=== PATIENT | male | born 1990 | race Caucasian/White ===

== ENCOUNTER 2017-03-31 20:10 | Emergency (ER) | payer OTHER ==
[2017-03-31 20:20] VITALS: BP 129/75; PULSE 63; TEMP 98.8; BMI 33.0
[2017-03-31] MEDS ORDERED: oxyCODONE HCL 5 MG TABLET PO ONE (21:09)
--- NOTE | 2017-03-31 21:09 | PDOC ---
History of Present Illness - General Chief Complaint: Chronic pain Stated Complaint: BACK PAIN Time Seen by Provider: 03/31/17 20:37 - History of Present Illness Initial Comments: 03/31/17 21:01 CHIEF COMPLAINT: back pain HISTORY OF PRESENT ILLNESS: 27 yo M with hx of back pain [facility]. Patient states his girlfriend accidentally washed his pills in his pants and "they all got soaked." He states that he called the pharmacy and the pharmacy told him to go to the emergency room. No recent travel or sick contacts. PAST MEDICAL HISTORY: Denies past medical history FAMILY HISTORY: Denies SOCIAL HISTORY: Denies tobacco, alcohol, illicit drug use. SURGICAL HISTORY: Denies ALLERGIES: No known drug allergies REVIEW OF SYSTEMS General/Constitutional: Denies weakness. Cardiovascular: Denies chest pain or shortness of breath. Respiratory: Denies cough, wheezing, or hemoptysis. Gastrointestinal: Denies nausea, vomiting, diarrhea. Genitourinary: Denies loss of bowel or bladder function. Musculoskeletal: Lower back pain. Skin and breasts: Denies rash or easy bruising. Neurologic: Denies headache, vertigo, loss of consciousness, or loss of sensation. PHYSICAL EXAM General Appearance: Well-appearing, appropriately dressed. No apparent distress. HEENT: EOMI, PERRLA. No photophobia, scleral icterus. Respiratory/Chest: Lungs CTAB. Cardiovascular: RRR. S1, S2. Musculoskeletal/Extremities: No midline tenderness to thoracic or lumbar spine. Patient ambulatory and does not appear to be in pain as he is talking on the cell phone and pacing around the exam room. FROM of all extremities, normal capillary refill. No tenderness to extremities, pedal edema, swelling, erythema or deformity. Integumentary: Appropriate color, dry, warm. No cyanosis, erythema, jaundice or rash Neurologic: sand drier II-XII intact. Fully oriented, alert. Appropriate mood/affect. Motor strength 5/5. No appreciable EOM palsy, facial droop or sensory deficit. 03/31/17 22:54 Past History - Past Medical History Allergies/Adverse Reactions: Allergies Allergy/AdvReac Type Severity Reaction Status Date / Time No Known Allergies Allergy Verified 03/31/17 20:17 Home Medications: Ambulatory Orders Oxycodone HCl 10 mg PO QID PRN 03/31/17 Anemia: No - Immunization History Immunization Up to Date: No - Suicide/Smoking/Psychosocial Hx Smoking Status: Yes Smoking History: Current every day smoker Have you smoked in the past 12 months: Yes Number of Cigarettes Smoked Daily: 20 Information on smoking cessation initiated: No Hx Alcohol Use: No Drug/Substance Use Hx: Yes (marijuana) *Physical Exam - Vital Signs Last Vital Signs Temp Pulse Resp BP Pulse Ox 98.8 F 63 18 129/75 100 03/31/17 20:12 03/31/17 20:12 03/31/17 20:12 03/31/17 20:12 03/31/17 20:12 Medical Decision Making - Medical Decision Making 03/31/17 22:56 27 yo M with hx of back pain [facility]. [facility] referenced. Patient was prescribed 120 tab oxycodone two weeks ago. Rx Written Rx Dispensed Drug Quantity Days Supply Prescriber Name 03/10/2017 03/10/2017 oxycodone hcl 10 mg tablet 120 30 Elzholz, Juan 02/06/2017 02/06/2017 oxycodone hcl 10 mg tablet 120 30 Elzholz, Juan 01/06/2017 01/06/2017 oxycodone hcl 10 mg tablet 120 30 Elzholz, Juan 12/14/2016 12/14/2016 oxycodone hcl 10 mg tablet 90 30 Elzholz, Juan Patient Name: Fabiola Lei Date: 1990 Address: [address] [place] [address] Sex: Male Rx Written Rx Dispensed Drug Quantity Days Supply Prescriber Name 09/04/2016 09/29/2016 buprenorphine-naloxone 8-2 mg sl tablet 90 30 Vando, Chavo 07/10/2016 08/07/2016 buprenorphine-naloxone 8-2 mg sl tablet 90 30 Vando, Chavo 07/10/2016 07/10/2016 buprenorphine-naloxone 8-2 mg sl tablet 90 30 Vando, Chavo 06/12/2016 06/15/2016 buprenorphine 8 mg tablet sl 90 30 VandChavo jennings Will give patient one tablet of oxycodone here in ED, advised patient to f/u with ortho tomorrow to discuss medication refill. *DC/Admit/Observation/Transfer Diagnosis at time of Disposition: Back pain - Discharge Dispostion Disposition: HOME Condition at time of disposition: Stable Admit: No - Referrals Referrals: Champ Lacy MD [Primary Care Provider] - - Patient Instructions Printed Discharge Instructions: DI for Low Back Pain Additional Instructions: As discussed, please follow up with your orthopedic doctor tomorrow for continued pain management. If you develop sudden loss of sensation to your extremities, loss of bowel or bladder function, or any new or worsening symptoms , please return to the ER. - Post Discharge Activity
[2017-03-31] MEDS ORDERED: oxyCODONE HCL 5 MG TABLET ONE (21:13)
== END 2017-03-31 21:19 | disposition home or self-care (01) ==
LOC: JERFT 20:10
DX: M54.5 Low back pain (principal); F17.210 Nicotine dependence, cigarettes, uncomplicated
CPT/HCPCS: 99281-25

== ENCOUNTER 2017-10-31 20:42 | Emergency (ER) | payer OTHER ==
[2017-10-31 20:52] VITALS: BP 126/58; PULSE 59; TEMP 98.5; BMI 30.7
--- NOTE | 2017-10-31 21:11 | PDOC ---
History of Present Illness - General Chief Complaint: Pain Stated Complaint: SPIDER BITE Time Seen by Provider: 10/31/17 21:03 History Source: Patient Exam Limitations: No Limitations - History of Present Illness Initial Comments: 10/31/17 21:32 Pt. is a 27 y/o M who presents to the ED with swelling to his R forearm for 4 days. Pt states that it is warm and tender to the touch. He thinks he got bit by a spider. Denies fevers, chills, joint pain, n/v/d. Past History - Travel Traveled outside of the country in the last 30 days: No Close contact w/someone who was outside of country & ill: No - Past Medical History Allergies/Adverse Reactions: Allergies Allergy/AdvReac Type Severity Reaction Status Date / Time hydrocodone Allergy Severe Rash Verified 11/25/17 17:10 Home Medications: Ambulatory Orders Cephalexin Monohydrate [Keflex -] 500 mg PO Q6H #28 capsule 11/20/17 Sulfamethoxazole/Trimethoprim [Bactrim Ds -] 1 tab PO BID #14 tablet 11/20/17 Anemia: No COPD: No Other medical history: Pt denies - Immunization History Immunization Up to Date: No - Suicide/Smoking/Psychosocial Hx Smoking Status: Yes Smoking History: Never smoked Have you smoked in the past 12 months: Yes Number of Cigarettes Smoked Daily: 20 Information on smoking cessation initiated: No Hx Alcohol Use: No Drug/Substance Use Hx: No Substance Use Type: None Review of Systems - Review of Systems Able to Perform ROS?: Yes Comments:: 10/31/17 21:50 CONSTITUTIONAL: Absent: fever, chills, diaphoresis, generalized weakness, malaise, loss of appetite MUSCULOSKELETAL: Absent: myalgia, arthralgia, joint swelling SKIN: Present: redness to R forearm. Absent: rash, itching, pallor NEUROLOGIC: Absent: headache, focal weakness or paresthesias, dizziness, unsteady gait, seizure, mental status changes, bladder or bowel incontinence Is the patient limited [place] Citizen proficient: No *Physical Exam - Vital Signs Last Vital Signs Temp Pulse Resp BP Pulse Ox 98.5 F 59 L 18 126/58 99 10/31/17 20:50 10/31/17 20:50 10/31/17 20:50 10/31/17 20:50 10/31/17 20:50 - Physical Exam Comments: 10/31/17 21:31 GENERAL: Well developed, well nourished. Awake and alert. No acute distress. NECK: Supple. Full ROM. No lymphadenopathy. MUSCULOSKELETAL Normal range of motion at all joints. No bony deformities or tenderness. No CVA tenderness. EXTREMITIES: 4cm round area of warmth and erythem to R ventral forearm. No evidence of pus. No cyanosis. No clubbing. No edema. No calf tenderness. SKIN: Warm and dry. Normal capillary refill. No rashes. No jaundice. NEUROLOGICAL: Alert, awake, appropriate. Cranial nerves 2-12 intact. No deficits to light touch and temperature in face, upper extremities and lower extremities. No motor deficits in the in face, upper extremities and lower extremities. Normoreflexic in the upper and lower extremities. Normal speech. Toes are down- going bilaterally. Gait is normal without ataxia. PSYCHIATRIC: Cooperative. Good eye contact. Appropriate mood and affect. Medical Decision Making - Medical Decision Making 10/31/17 21:39 Pt. is a 27 y/o M who presents to the ED with cellulitis to the R forearm for four days. No active drainage. Will treat with bactrim and keflex. Area marked. Return precautions given. Pt. understands all dc instructions and all questions were answered. *DC/Admit/Observation/Transfer Diagnosis at time of Disposition: Cellulitis - Discharge Dispostion Disposition: HOME Condition at time of disposition: Stable Decision to Admit order: No - Referrals Referrals: Mukul Flores MD [Staff Physician] - - Patient Instructions Printed Discharge Instructions: DI for Cellulitis -- Adult Additional Instructions: You have cellulitis. This is a skin infection. Please take the Bactrim and Keflex twice a day for one week. Please take all the antibiotics even if you feel better. You may use warm water soaks to the area. Please do this approximately 4-5 times a day. Please avoid shaving the skin around the area of redness. You may take Tylenol or Motrin as needed for pain. Please follow up with your primary care doctor in 1 week. Return to the emergency department if you have worsening redness, fevers, increasing pain, or have any changes in your symptoms. - Post Discharge Activity
== END 2017-10-31 21:45 | disposition home or self-care (01) ==
LOC: JERFT 20:42
DX: L03.113 Cellulitis of right upper limb (principal); F17.210 Nicotine dependence, cigarettes, uncomplicated
CPT/HCPCS: 99281-25

== ENCOUNTER 2017-11-20 14:02 | Emergency (ER) | payer OTHER ==
[2017-11-20 14:15] VITALS: BP 134/71; PULSE 72; TEMP 98.5; BMI 29.5
--- NOTE | 2017-11-20 14:35 | PDOC ---
History of Present Illness - General Chief Complaint: Wound Stated Complaint: BITE Time Seen by Provider: 11/20/17 14:21 History Source: Patient, Old Records Exam Limitations: No Limitations - History of Present Illness Initial Comments: 11/20/17 14:59 27-year-old male with history of cellulitis presents with right elbow pain and redness for the past 3 days. Patient states he had similar symptoms 3 weeks ago in the right mid humeral area which was treated with Keflex and Bactrim. Patient denies any trauma and states the reddened area started after an insect bite. Patient denies any fevers, chills. Past History - Past Medical History Allergies/Adverse Reactions: Allergies Allergy/AdvReac Type Severity Reaction Status Date / Time hydrocodone Allergy Severe Rash Verified 11/20/17 14:13 Home Medications: Ambulatory Orders Cephalexin Monohydrate [Keflex -] 500 mg PO Q6H #28 capsule 11/20/17 Sulfamethoxazole/Trimethoprim [Bactrim Ds -] 1 tab PO BID #14 tablet 11/20/17 Anemia: No COPD: No - Immunization History Immunization Up to Date: No - Suicide/Smoking/Psychosocial Hx Smoking Status: Yes Smoking History: Current every day smoker Have you smoked in the past 12 months: Yes Number of Cigarettes Smoked Daily: 20 Information on smoking cessation initiated: No Hx Alcohol Use: No Drug/Substance Use Hx: No Substance Use Type: None Review of Systems - Review of Systems Able to Perform ROS?: Yes Is the patient limited [place] proficient: No Constitutional: No: Symptoms Reported HEENTM: No: Symptoms Reported Respiratory: No: Symptoms reported Cardiac (ROS): No: Symptoms Reported ABD/GI: No: Symptoms Reported : No: Symptoms Reported Musculoskeletal: No: Symptoms Reported Integumentary: Yes: See HPI Neurological: No: Symptoms reported *Physical Exam - Vital Signs Last Vital Signs Temp Pulse Resp BP Pulse Ox 98.5 F 72 18 134/71 99 11/20/17 14:13 11/20/17 14:13 11/20/17 14:13 11/20/17 14:13 11/20/17 14:13 - Physical Exam General Appearance: Yes: Appropriately Dressed. No: Apparent Distress HEENT: positive: Normal ENT Inspection Neck: positive: Trachea midline, Supple Respiratory/Chest: positive: Lungs Clear, Normal Breath Sounds. negative: Respiratory Distress, Accessory Muscle Use Cardiovascular: positive: Regular Rhythm, Regular Rate. negative: Murmur Gastrointestinal/Abdominal: positive: Normal Bowel Sounds, Soft. negative: Tender Musculoskeletal: positive: Normal Inspection. negative: CVA Tenderness Extremity: positive: Normal Capillary Refill, Normal Range of Motion, Erythema ( medial elbow) Integumentary: positive: Normal Color, Dry, Warm Neurologic: positive: Alert, Normal Response Medical Decision Making - Medical Decision Making 11/20/17 14:35 A/P: 27-year-old male with history of right upper extremity cellulitis presents with right upper extremity cellulitis to the medial aspect of the elbow. Erythema and warmth to touch to the medial aspect of the right elbow. No fluctuance present Subcentimeter fluid-filled vesicle noted to the center of the erythematous area Patient will full range of motion with flexion and extension of right elbow No streaking present Patient is afebrile I will discharge the patient home with a cellulitis to be treated with Keflex and Bactrim. *DC/Admit/Observation/Transfer Diagnosis at time of Disposition: Cellulitis Qualifiers: Site of cellulitis: extremity Site of cellulitis of extremity: upper extremity Laterality: right Qualified Code(s): L03.113 - Cellulitis of right upper limb - Discharge Dispostion Disposition: HOME Condition at time of disposition: Fair Decision to Admit order: No - Prescriptions Prescriptions: Cephalexin Monohydrate [Keflex -] 500 mg PO Q6H #28 capsule Sulfamethoxazole/Trimethoprim [Bactrim Ds -] 1 tab PO BID #14 tablet - Referrals Referrals: Champ Lacy MD [Primary Care Provider] - - Patient Instructions Additional Instructions: Take Keflex 500 mg 4 times a day for the next 7 days Take Bactrim DS one tablet twice a day for the next 7 days Finish all antibiotics even if you feel better. Apply warm compresses to your ear as needed. Return to emergency department for any worsening pain, drainage, difficulty moving elbow, or any other concerns. Thank you very much for choosing us to provide your emergent health care needs. - Post Discharge Activity
== END 2017-11-20 14:50 | disposition home or self-care (01) ==
LOC: JERFT 14:02
DX: S50.361A Insect bite (nonvenomous) of right elbow, initial encounter (principal); L03.113 Cellulitis of right upper limb; W57.XXXA Bitten or stung by nonvenomous insect and other nonvenomous arthropods, initial encounter; Y93.89 Activity, other specified; Y92.89 Other specified places as the place of occurrence of the external cause; Y99.8 Other external cause status
CPT/HCPCS: 99281-25

== ENCOUNTER 2017-11-25 17:02 | Emergency (ER) | payer OTHER ==
[2017-11-25 17:10] VITALS: BP 124/66; PULSE 71; TEMP 98; BMI 29.9
--- NOTE | 2017-11-25 17:10 | PDOC ---
Rapid Medical Evaluation Time Seen by Provider: 11/25/17 17:05 Medical Evaluation: Allergies Allergy/AdvReac Type Severity Reaction Status Date / Time hydrocodone Allergy Severe Rash Verified 11/20/17 14:13 I have performed a brief in-person evaluation of this patient. The patient presents with a chief complaint of: spider bite on right elbow. on Keflex and Bactrim for 7 days; no improvement Pertinent physical exam findings: Erythematous abscess to right elbow with central raised area I have ordered the following: nothing The patient will proceed to the ED for further evaluation. Discharge Disposition - Diagnosis Cellulitis - Referrals - Patient Instructions - Post Discharge Activity
--- NOTE | 2017-11-25 18:15 | PDOC ---
History of Present Illness - General Chief Complaint: Redness To Affected Area Stated Complaint: BITE Time Seen by Provider: 11/25/17 17:05 History Source: Patient Exam Limitations: No Limitations - History of Present Illness Initial Comments: 11/25/17 18:20 Pt. is a 27 yo M who presents to the ED with a draining wound to his R elbow. Pt. was evaluated on 11/20/17 in our ED for cellulitis and pain to the L elbow. He was placed on bactrim and keflex and sent home. He states since then his cellulitis has reduced drastically and he can fully range the elbow. He is concerned because the area of the bite is now draining. Denies fevers, chills, bone pain, n/v/d, weakness and numbness to the extremity. Past History - Travel Traveled outside of the country in the last 30 days: No Close contact w/someone who was outside of country & ill: No - Past Medical History Allergies/Adverse Reactions: Allergies Allergy/AdvReac Type Severity Reaction Status Date / Time hydrocodone Allergy Severe Rash Verified 11/25/17 17:10 Home Medications: Ambulatory Orders Cephalexin Monohydrate [Keflex -] 500 mg PO Q6H #28 capsule 11/20/17 Sulfamethoxazole/Trimethoprim [Bactrim Ds -] 1 tab PO BID #14 tablet 11/20/17 Anemia: No COPD: No - Immunization History Immunization Up to Date: No - Suicide/Smoking/Psychosocial Hx Smoking Status: Yes Smoking History: Never smoked Have you smoked in the past 12 months: No Number of Cigarettes Smoked Daily: 20 Information on smoking cessation initiated: No Hx Alcohol Use: No Drug/Substance Use Hx: No Substance Use Type: None Review of Systems - Review of Systems Able to Perform ROS?: Yes Comments:: 11/25/17 18:15 CONSTITUTIONAL: Absent: fever, chills, diaphoresis, generalized weakness, malaise, loss of appetite MUSCULOSKELETAL: Absent: myalgia, arthralgia, joint swelling SKIN: Present: open draining abscess to the R elbow. Absent: rash, itching, pallor NEUROLOGIC: Absent: headache, focal weakness or paresthesias, dizziness, unsteady gait, seizure, mental status changes, bladder or bowel incontinence PSYCHIATRIC: Absent: anxiety, depression, suicidal or homicidal ideation, hallucinations. Is the patient limited [place] proficient: No *Physical Exam - Vital Signs Last Vital Signs Temp Pulse Resp BP Pulse Ox 98.0 F 71 16 124/66 100 11/25/17 17:06 11/25/17 17:06 11/25/17 17:06 11/25/17 17:06 11/25/17 17:06 - Physical Exam Comments: 11/25/17 18:16 GENERAL: Well developed, well nourished. Awake and alert. No acute distress. HEENT: Normocephalic, atraumatic. PERRLA, EOMI. No conjunctival pallor. Sclera are non- icteric. Moist mucous membranes. Oropharynx is clear. MUSCULOSKELETAL Normal range of motion at all joints. No bony deformities or tenderness. No CVA tenderness. EXTREMITIES: No joint swelling or erythema. Full ROM of the R elbow. No cyanosis. No clubbing. No edema. No calf tenderness. SKIN: Open draining abscess approximately 0.5cm round at the tip of the R elbow.Warm and dry. Normal capillary refill. No rashes. No jaundice. NEUROLOGICAL: Alert, awake, appropriate. Cranial nerves 2-12 intact. No deficits to light touch and temperature in face, upper extremities and lower extremities. No motor deficits in the in face, upper extremities and lower extremities. Normoreflexic in the upper and lower extremities. Normal speech. Toes are down- going bilaterally. Gait is normal without ataxia. Medical Decision Making - Medical Decision Making 11/25/17 18:22 Pt. is a 27 y.o M who presents to the ED with a draining abscess to his R elbow. Abscess drained with manual expression. Wound culture collected. Pt. told to continue abx. Follow up with ID and ortho given if necessary. Strict return precautions given. Pt. understands all dc instructions and all questions were answered. *DC/Admit/Observation/Transfer Diagnosis at time of Disposition: Abscess Cellulitis Qualifiers: Site of cellulitis: extremity Site of cellulitis of extremity: upper extremity Laterality: right Qualified Code(s): L03.113 - Cellulitis of right upper limb - Discharge Dispostion Disposition: HOME Condition at time of disposition: Stable Decision to Admit order: No - Referrals Referrals: Felix Mcdonald MD [Staff Physician] - Simón Bennett MD [Staff Physician] - - Patient Instructions Printed Discharge Instructions: DI for Cellulitis -- Adult Additional Instructions: You have cellulitis. This is a skin infection. Please continue to take the Bactrim and Keflex twice a day for one week. Please take all the antibiotics even if you feel better. You may use warm water soaks to the area. Please do this approximately 4-5 times a day. Please avoid shaving the skin around the area of redness. You may take Tylenol or Motrin as needed for pain. Please follow up with your primary care doctor in 1 week. If your symptoms are not getting better, please follow up with wound care/ Dr. Mcdonald (infectious disease). You were also given ortho follow up. Return to the emergency department if you have worsening redness, fevers, increasing pain, or have any changes in your symptoms. Wound care phone # [phone] - Post Discharge Activity Forms/Work/School Notes: Back to Work
--- NOTE | 2017-11-28 00:48 | PDOC ---
Patient Follow-up (Call Back) - Post ED Follow - Up Chief Complaint: Wound Condition at time of discharge: Stable Disposition at time of original discharge: HOME Reason for Call Back: Abnwl. Microbiology (R elbow wound culture POSITIVE for MRSA.) - Disposition Additional Instructions/Notes: 12:51 PM (11-28-17) Called Patient phone number on file ) and spoke to patient regarding Positive MRSA wound culture advising. Patent Keflex 500mg QID, and Bactrim BID. Advised pt. to come back to ED with worsening wound, systemic symptoms, F/C, N/V. 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
== END 2017-11-25 18:07 | disposition home or self-care (01) ==
LOC: JERFT 17:02
DX: L03.113 Cellulitis of right upper limb (principal); S50.361 Insect bite (nonvenomous) of right elbow; W57.XXXD Bitten or stung by nonvenomous insect and other nonvenomous arthropods, subsequent encounter
CPT/HCPCS: 87070; 87186; 87205; 99281-25

== ENCOUNTER 2023-09-26 16:25 | Emergency (ER) | payer OTHER ==
[2023-09-26 16:34] VITALS: BP 113/72; PULSE 98; RESP 18; TEMP 98.3; BMI 33.5
== END 2023-09-26 17:30 | disposition left against medical advice (07) ==
LOC: JER 16:25
DX: R55 Syncope and collapse (principal)
CPT/HCPCS: 93005; 93010; 99283-25

== ENCOUNTER 2024-09-14 19:09 | Inpatient (IN) | payer BC ==
[2024-09-14 19:31] VITALS: BMI 34.8
[2024-09-14] MEDS: ACETAMINOPHEN 500 MG TABLET (FP) PO ONE (21:20)
[2024-09-14] MEDS ORDERED: ACETAMINOPHEN 325 MG TABLET (FP) ONE (21:23)
[2024-09-14] MEDS: morphine SULFATE 4 MG/ML VIAL IVPUSH ONE (21:30)
[2024-09-14] MEDS ORDERED: morphine SULFATE 4 MG/ML VIAL ONE (21:34)
[2024-09-14 21:45] LABS: HEMATOCRIT 38.4 % (40.1-51.0); MCHC 31.3 g/dl (32.3-36.5); MEAN CELL VOLUME 90.1 fl (79.0-92.2); MEAN PLT VOLUME 10.1 fl (9.4-12.4); PLATELET COUNT # 271 x10^3/uL (163-337); RDW 13.8 % (12.0-15.6)
[2024-09-14 22:02] LABS: POTASSIUM 4.1 mmol/L (3.5-5.1)
[2024-09-14 22:04] LABS: ALBUMIN 3.3 g/dl (3.4-5.0); CALCIUM 8.8 mg/dL (8.5-10.1)
[2024-09-14 22:05] LABS: BLOOD UREA NITROGEN 12.4 mg/dL (7-18)
[2024-09-14 22:08] LABS: CREATININE 0.7 mg/dL (0.55-1.3)
[2024-09-14 22:09] LABS: BILIRUBIN,TOTAL 0.4 mg/dL (0.2-1); TOT PROT 7.1 g/dl (6.4-8.2)
[2024-09-14] MEDS: KETOROLAC TROMETHAMINE 15 MG/ML VIAL IVPUSH ONE (22:55)
[2024-09-14] MEDS ORDERED: KETOROLAC TROMETHAMINE 15 MG/ML VIAL ONE (23:02)
[2024-09-14 23:16] LABS: URINE APPEARANCE CLEAR; URINE BILIRUBIN NEGATIVE (NEGATIVE); URINE COLOR YELLOW; URINE GLUCOSE (UA) NEGATIVE (NEGATIVE); URINE KETONE NEGATIVE (NEGATIVE); URINE LEUK ESTERASE NEGATIVE (NEGATIVE); URINE NITRITE NEGATIVE (NEGATIVE); URINE PROTEIN NEGATIVE (NEGATIVE)
[2024-09-15] MEDS: morphine CARPU-JECT 4 MG/1 ML DISP.SYRIN IVPUSH ONE (01:28)
[2024-09-15] MEDS ORDERED: morphine SULFATE 4 MG/ML VIAL ONE (01:30)
[2024-09-15] MEDS ORDERED: MORPHINE SULFATE 2 MG/ML SYRINGE IVPUSH PRN (02:33)
[2024-09-15] MEDS: SODIUM CHLORIDE 1,000 ML IV SCH ×2 (02:51→09:59)
[2024-09-15] MEDS: oxyCODONE HCL 5 MG TABLET PO PRN ×2 (03:45→12:38)
[2024-09-15] MEDS: HEPARIN NA (PORCINE) 5,000 UNITS/ML 1ML VIAL SQ SCH (06:06)
[2024-09-15] MEDS ORDERED: ACETAMINOPHEN 325 MG TABLET (FP) PO PRN (09:21)
[2024-09-15] MEDS ORDERED: ACETAMINOPHEN 1000 MG/100 ML BAG IVPB PRN (09:27)
[2024-09-15 09:32] LABS: ABSOLUTE IMMATURE GRANULOCYTES 0.17 x10^3/uL (0.0-0.031); BASOPHILS # 0.02 x10^3/uL (0.01-0.08); HEMATOCRIT 38.5 % (40.1-51.0); HEMOGLOBIN 12.4 g/dL (13.7-17.5); MCHC 32.2 g/dl (32.3-36.5); MEAN CELL VOLUME 89.1 fl (79.0-92.2); MEAN PLT VOLUME 10.4 fl (9.4-12.4); MONOCYTE # 1.33 x10^3/uL (0.30-0.82); MONOCYTE % 6.7 % (5.3-12.2); PLATELET COUNT # 246 x10^3/uL (163-337); RDW 13.8 % (12.0-15.6)
[2024-09-15 09:49] LABS: POTASSIUM 3.5 mmol/L (3.5-5.1)
[2024-09-15] MEDS: HYDROmorphone HCL CARPU-JECT 2 MG/1 ML DISP.SYRIN IVPUSH PRN (09:53)
[2024-09-15] MEDS: ONDANSETRON *ODT* 4 MG TABLET SL ONE (09:53)
[2024-09-15 10:05] LABS: ALBUMIN 3.1 g/dl (3.4-5.0); BLOOD UREA NITROGEN 9.4 mg/dL (7-18); CALCIUM 8.6 mg/dL (8.5-10.1)
[2024-09-15 10:06] LABS: BILIRUBIN,TOTAL 1.2 mg/dL (0.2-1); TOT PROT 7.3 g/dl (6.4-8.2)
[2024-09-15 10:08] LABS: CREATININE 0.8 mg/dL (0.55-1.3)
[2024-09-15] MEDS ORDERED: ONDANSETRON 4 MG/2 ML VIAL IVPUSH PRN (13:00)
[2024-09-15] MEDS ORDERED: VANCOMYCIN 2,000 MG in DEXTROSE 5%-WATER - 500 ML IVPB SCH (13:15)
[2024-09-15] MEDS: PIPERACILLIN/TAZOB 3.375 GM 50 ML IVPB SCH (13:40)
[2024-09-15] MEDS: PIPERACILLIN/TAZOB 3.375 GM 3.375 GM in DEXTROSE 5%-WATER - 50 ML IVPB SCH ×2 (13:40→18:07)
[2024-09-15] MEDS: ACETAMINOPHEN 1000 MG/100 ML BAG IVPB PRN (14:39)
[2024-09-15] MEDS ORDERED: HEPARIN NA (PORCINE) 5,000 UNITS/ML 1ML VIAL IVPUSH ONE (18:23)
[2024-09-15] MEDS ORDERED: HEPARIN NA (PORCINE) 5,000 UNITS/ML 1ML VIAL IVPUSH PRN ×2 (18:23)
[2024-09-15] MEDS ORDERED: HEPARIN INFUSION - 25,000 UNITS/500 ML INFUS.BAG IVPB SCH (18:30)
[2024-09-15] MEDS: ENOXAPARIN NA (PORCINE) 120 MG/0.8 ML DISP.SYRIN SQ SCH (22:08)
[2024-09-16] MEDS: PIPERACILLIN/TAZOB 3.375 GM 50 ML IVPB SCH (01:11)
[2024-09-16] MEDS: HYDROmorphone HCL CARPU-JECT 2 MG/1 ML DISP.SYRIN IVPUSH ONE ×2 (10:15→12:32)
[2024-09-16 10:17] LABS: INR 1.65 (0.83-1.09); PROTHROMBIN TIME (PATIENT) 18.2 SEC (9.7-13.0)
[2024-09-16] MEDS: ACETAMINOPHEN 500 MG TABLET (FP) PO ONE (14:11)
[2024-09-16] MEDS ORDERED: HYDROmorphone HCL CARPU-JECT 2 MG/1 ML DISP.SYRIN IVPUSH PRN (16:34)
[2024-09-16] MEDS: HYDROmorphone HCL CARPU-JECT 2 MG/1 ML DISP.SYRIN IVPB PRN (16:59)
[2024-09-16 17:05] VITALS: RESP 18
[2024-09-16] MEDS: LACTATED RINGERS SOLUTION 1,000 ML/1,000 ML INFUS.BAG IV SCH (18:46)
[2024-09-16 19:07] LABS: ABSOLUTE IMMATURE GRANULOCYTES 0.07 x10^3/uL (0.0-0.031); BASOPHILS # 0.02 x10^3/uL (0.01-0.08); EOSINOPHIL % 0.2 % (0.8-7.0); EOSINOPHILS # 0.03 x10^3/uL (0.04-0.54); HEMATOCRIT 36.8 % (40.1-51.0); HEMOGLOBIN 11.4 g/dL (13.7-17.5); MEAN CELL VOLUME 91.1 fl (79.0-92.2); MEAN PLT VOLUME 10.2 fl (9.4-12.4); MONOCYTE # 0.69 x10^3/uL (0.30-0.82); MONOCYTE % 4.3 % (5.3-12.2); PLATELET COUNT # 202 x10^3/uL (163-337); RDW 14.1 % (12.0-15.6)
[2024-09-16 19:32] LABS: POTASSIUM 3.9 mmol/L (3.5-5.1)
[2024-09-16 19:34] LABS: CALCIUM 8.2 mg/dL (8.5-10.1)
[2024-09-16 19:35] LABS: BLOOD UREA NITROGEN 6.8 mg/dL (7-18)
[2024-09-16 19:38] LABS: CREATININE 0.7 mg/dL (0.55-1.3)
[2024-09-16 19:40] LABS: BILIRUBIN,TOTAL 0.8 mg/dL (0.2-1); TOT PROT 6.5 g/dl (6.4-8.2)
[2024-09-16 20:33] LABS: ALBUMIN 2.4 g/dl (3.4-5.0)
[2024-09-16] MEDS: VANCOMYCIN/WATER 2 GRAMS 2,000 MG/400 ML PIGGYBACK IVPB ONE (21:49)
[2024-09-16] MEDS: ACETAMINOPHEN 650 MG/20.3 ML ORAL SOLUTION (CUPS) PO PRN (22:33)
[2024-09-16] MEDS: CEFTRIAXONE 2 GM-D5W BAG 2 GM/50 ML BAG IVPB SCH (23:51)
[2024-09-17 01:32] VITALS: BP 122/77; PULSE 102; TEMP 99.1
[2024-09-17] MEDS ORDERED: VANCOMYCIN PREMIX 1.5 GM 1,500 MG/300 ML BAG IVPB SCH (10:00)
== END 2024-09-17 01:50 | disposition short-term general hospital (02) | DRG 555 ==
LOC: JER 19:09 → JERBED 09-15 02:17 → OBSVTOIN 09-15 02:33 → J6S 09-15 04:17
PROVIDERS: ADMIT Hospitalist; ATTEND Student in an Organized Health Care Education/Training Program
DX: M60.851 Other myositis, right thigh (principal); K68.12 Psoas muscle abscess; I82.421 Acute embolism and thrombosis of right iliac vein; I82.411 Acute embolism and thrombosis of right femoral vein; R78.81 Bacteremia; F11.10 Opioid abuse, uncomplicated; D72.829 Elevated white blood cell count, unspecified; R50.9 Fever, unspecified; B95.0 Streptococcus, group A, as the cause of diseases classified elsewhere
CPT/HCPCS: 36415; 72170-TC-FY; 73521-TC-FY; 74177-TC; 80053; 81003; 82550; 82553; 85025; 85027; 85379; 85610; 85651; 86140; 87040; 87086; 87186; 93970-TC; 99285-25; G0378; J0131; J1644; Q0162

== ENCOUNTER 2025-02-25 10:37 | Emergency (ER) | payer BC ==
[2025-02-25 10:46] VITALS: BP 101/60; PULSE 88; RESP 20; TEMP 98.2; BMI 31.4
[2025-02-25] MEDS ORDERED: BUPRENORPHINE/NALOXONE 8 MG/2 MG FILM PACKET ONE (11:56)
[2025-02-25] MEDS: BUPRENORPHINE/NALOXONE 8 MG/2 MG FILM PACKET SL ONE (11:59)
== END 2025-02-25 12:01 | disposition home or self-care (01) ==
LOC: JER 10:37
DX: R42 Dizziness and giddiness (principal); Z76.0 Encounter for issue of repeat prescription
CPT/HCPCS: 82962; 93005; 93010; 99284-25